=== PATIENT | female | born 1945 | race Caucasian/White ===

== ENCOUNTER 2016-09-24 10:53 | Day surgery (SDC) | payer MEDICARE, MEDICAID ==
--- NOTE | 2016-09-24 08:17 | History and Physical Report ---
DATE OF EVALUATION: 09/24/2016. CHIEF COMPLAINT AND HISTORY OF CHIEF COMPLAINT: This patient presents with a history of postlaminectomy radiculitis. Due to the failure of all therapies, a spinal cord stimulator trial was conducted on 08/21/2016 with 75 to 90% pain control. Due to the failure of all therapies and the success of the stimulator trial she presents today for implantation of a permanent system. PAST MEDICAL HISTORY: Bladder dysfunction, degenerative arthritis, radiculitis. REVIEW OF SYSTEMS: The patient seems appropriate and in no acute distress. The remainder of the systems review shows [] SOCIAL HISTORY: Caffeine. FAMILY HISTORY: Noncontributory. PAST SURGICAL HISTORY: Spinal surgery. ALLERGIES: Aspirin. MEDICATIONS ON ADMISSION: To be provided. PHYSICAL EXAMINATION: General: Height is 5 feet, 7 inches. Weight is 130 pounds. Vital Signs: Unavailable. HEENT: Within normal limits. Lungs: Clear. Heart: Regular rate and rhythm. Abdomen: Nontender. Musculoskeletal: Examination of the musculoskeletal system shows diffuse tenderness throughout the lumbar spine. Range of motion produces pain into both legs. Ambulation: No assistive device utilized. Neurologic: Cranial nerves are intact. IMPRESSIONS: 1. POSTLUMBAR LAMINECTOMY SYNDROME, ICD10 CODE M96.1. 2. LUMBAR RADICULITIS, ICD10 CODE M54.16 AND M54.17. PLANS: The patient is here for implantation of a permanent spinal cord stimulator based upon a successful trial. All of the potential risks, side effects, and complications have been carefully reviewed and discussed including dural puncture, spinal headache, nerve root injury, and spinal cord trauma. The patient understands the potential risks, side effects, and complications and has consented. The appropriate information from the commercial assistant explaining complications and risks was also provided and reviewed. We will consider this an outpatient procedure, although an overnight stay will be evaluated. Christian Corrales D.O. Date Time JOB NUMBER: [id number] cc: Raymon Hoffman
[~2016-09-24 10:53] MED LIST: ACETAMINOPHEN 1000MG/100 ML PREMIX IV ONE; CEFAZOLIN 2 Gram 50 ML IVPB ONE; FAMOTIDINE 20MG TABLET PO ONE; MECLIZINE 25 MG TABLET PO ONE; METOCLOPRAMIDE 10 MG TABLET PO ONE
[2016-09-24] MEDS ORDERED: CEFAZOLIN 1G VIAL IM ONE ×2 (14:00)
[2016-09-24] MEDS ORDERED: BUPIVACAINE 0.5% W/EPI MPF 30 ML VIAL IVP ONE (14:00)
[2016-09-24] MEDS ORDERED: LIDOCAINE 1% W/EPI 1:200,000 MPF 30ML SQ ONE (14:00)
[2016-09-24] MEDS ORDERED: PROPOFOL 10 MG/ML VIAL IV ONE (15:51)
[2016-09-24] MEDS ORDERED: FENTANYL PF 100MCG/2ML VIAL IV ONE (15:51)
[2016-09-24] MEDS ORDERED: FLUMAZENIL 1MG/10ML VIAL IV ONE (15:51)
[2016-09-24] MEDS ORDERED: MIDAZOLAM HCL 2MG/2ML VIAL IV ONE (15:51)
[2016-09-24] MEDS ORDERED: LIDOCAINE 2% MDV (20MG/ML) 20ML VIAL IV ONE (15:51)
[2016-09-24] MEDS ORDERED: METOCLOPRAMIDE 10 MG TABLET PO PRN (15:52)
[2016-09-24] MEDS ORDERED: HYDROMORPHONE HCL 1 MG/ML CPJ IM PRN (15:52)
[2016-09-24] MEDS ORDERED: HYDROCODONE/APAP 7.5/325MG TABLET PO PRN ×2 (15:52)
[2016-09-24] MEDS ORDERED: ACETAMINOPHEN 325 MG TAB PO PRN ×2 (15:52)
[2016-09-24] MEDS ORDERED: HYDROMORPHONE HCL 2 MG/ML VIAL IM PRN (15:52)
[2016-09-24] MEDS ORDERED: METOCLOPRAMIDE HCL 10 MG/2 ML VIAL IVP PRN (15:52)
[2016-09-24] MEDS ORDERED: DIPHENHYDRAMINE HCL IV 50 MG/ML VIAL IVP PRN ×2 (15:52)
[2016-09-24] MEDS ORDERED: SENNOSIDES/DOCUSATE SODIUM UD CAPSULE PO PRN ×2 (15:52)
[2016-09-24] MEDS ORDERED: OXYCODONE/APAP 10MG-325MG TABLET PO PRN (15:52)
[2016-09-24] MEDS ORDERED: TEMAZEPAM 15 MG CAPSULE PO PRN ×2 (15:52)
[2016-09-24] MEDS ORDERED: DIPHENHYDRAMINE HCL 25 MG CAPSULE PO PRN ×2 (15:52)
[2016-09-24] MEDS ORDERED: AL HYDROX/MAG HYDROX 30ML UD PO PRN (15:52)
[2016-09-24] MEDS: OXYCODONE/APAP 10MG-325MG TABLET PO PRN ×2 (18:10→23:28)
[2016-09-24] MEDS: CEFAZOLIN 2 Gram 50 ML IVPB SCH (21:07)
[2016-09-24] MEDS ORDERED: 0.9 % SODIUM CHLORIDE 10ML SYR IVP SCH (22:00)
[2016-09-25] MEDS: CEFAZOLIN 2 Gram 50 ML IVPB SCH (05:34)
--- NOTE | 2016-09-25 16:42 | Operative Note - [place] ---
DATE OF SURGERY: 09/24/16 PREOPERATIVE DIAGNOSES: 1. POST LUMBAR LAMINECTOMY SYNDROME, ICD-10 CODE = M96.1. 2. LUMBAR RADICULITIS, ICD-10 CODE = M54.16 AND M54.17. OPERATION: 1. FLUOROSCOPICALLY-GUIDED EPIDURAL ACCESS AT T12/L1. PLACEMENT OF SPINAL CORD STIMULATOR LEAD 1, A [employer] INFINION 16 WITH 16 ELECTRODES POSITIONED LEFT, T7. 2. COMPLEX PROGRAMMING LEAD 1, 20 MINUTES. 3. FLUOROSCOPICALLY-GUIDED EPIDURAL ACCESS T11/12, PLACEMENT OF SPINAL CORD STIMULATOR LEAD 2, A [employer] INFINION 16 WITH 16 ELECTRODES POSITIONED RIGHT, T7. 4. COMPLEX PROGRAMMING LEAD 2, 20 MINUTES. 5. INCISION, SUBCUTANEOUS DISSECTION, AND ANCHORING OF LEAD 1 AND LEAD 2 TO SUPRASPINOUS FASCIA USING A [employer] LOCKING ANCHOR. 6. INCISION, SUBCUTANEOUS DISSECTION, AND CREATION OF SUBCUTANEOUS POUCH, RIGHT POSTERIOR GLUTEAL MARGIN FOR PLACEMENT OF GENERATOR IDENTIFIED [employer] PROGRAMMABLE RECHARGEABLE. 7. TUNNELING BETWEEN POUCHES. PLACEMENT OF EXTERNAL PORTION OF LEAD 1 AND LEAD 2 INTO GENERATOR POUCH, EACH LEAD INTERFACED WITH THE BIFURCATED EXTENSION, EACH BIFURCATED EXTENSION INTERFACED TO THE INTERNAL PULSE GENERATOR. 8. SECURING GENERATOR INTO POUCH USING NONABSORBABLE SUTURE, PLACEMENT OF LEADS INTO POUCH. CLOSURE OF INCISIONS, VICRYL FOR FASCIA, RUNNING SUBCUTICULAR VICRYL FOR SKIN. DERMABOND CLOSURE. 9. COMPLEX RECOVERY ROOM PROGRAMMING INTERNAL GENERATOR HOME USE, TWO STIMULATORS, RECOVERY ROOM 20 MINUTES. SURGEON: VICTORINO SEGURA D.O. ANESTHESIA: LOCAL SEDATION. ANESTHESIA PROVIDER: CONOR STEWART CRNA. INDICATION: This patient presents with a history of intractable lumbar radiculitis since post laminectomy in order. Due to the failure of therapy, a stimulator trial conducted with up to 75 to 90% pain control. Due to the failure of all therapies and the success of the trial, she is here for implantation of a permanent system. PROCEDURE: Intravenous line, vital sign monitoring, IV sedation. Prepped and draped sterile technique. Under imaging, the epidural interspace at 12/1 and 11/ 12 were both identified and marked. Skin infiltrated and two separate curved access Epimed needles with [id number] into the epidural space. At T12/1 , spinal cord stimulator lead 1, a [employer] Infinion 16 with 16 electrodes positioned left T7. With the epidural access at T11/12, spinal cord stimulator lead 2, also a [employer] Infinion 16 with 16 electrodes, positioned right of T7. Complex programming of lead 1 over 20 minutes and complex programming of lead 2 over 20 minutes ultimately resulting in patterns of stimulation across the back and into the legs; patient indicating we are in all of the appropriate areas. She was then given the option to implant, continue to program, or remove; she opted to implant. Questions were repeated with the same response. The skin below both needles was infiltrated, incision made, and subcutaneous dissection was conducted to form a pouch of suitable size and depth for the generator identified as a [employer] Programmable Rechargeable. After the leads were anchored to the fascia, they were tunneled into the pouch at the right posterior/superior gluteal margin. Each lead was then interfaced with a bifurcated extension and each bifurcated extension was interfaced to the generator. Antibiotic irrigation. Bovie for hemostasis. The generator was placed into the pouch and secured to the fascia with nonabsorbable suture. The leads were coiled and placed to their own pouch and then both incisions were closed Vicryl for fascia and running subcuticular Vicryl for skin. A Dermabond closure system to approximate the edges of the wound. She was transported to the Recovery Room stable showing no side-effects from the procedure or the sedation. Because of age and medical history, she will stay overnight for observation and be discharged in the morning. DISCHARGE INSTRUCTIONS: 1. The sites will remain clean and dry although the Dermabond will allow showering. 2. Standard medications resumed, including, Levaquin, the antibiotic, 500 mg once a day for 14 days. Should there be any problems with the antibiotic, she should contact the clinic for change. 3. She will be seen in the office in 5-7 days to evaluate the incisions. Until then, her activities should stay low limiting bend, lift, push, pull, walking, or standing for prolonged periods. Once seen in the office, she will be cleared for further activities. All other instructions provided. Numbers to contact have been given. She was then prepared for discharge in the morning. VICTORINO SEGURA D.O. Date & Time cc: Dr. Schwarz JOB NUMBER: [id number] [facility]
--- NOTE | 2016-09-29 08:02 | RADIOLOGY REPORT ---
DATE: 09/24/2016 at 3:13 p.m. EXAM: AP THORACOLUMBAR SPINE. HISTORY: Post spinal cord stimulator implant. TECHNIQUE: Single AP view of the thoracolumbar spine was obtained. COMPARISON: None. FINDINGS: There is a battery pack in the right lower quadrant with two wires extending from this to overlying the lumbar spine and then ascend up to the level of the superior aspect of T6 vertebra. There is also a battery pack overlying the left lower quadrant partially seen with a wire probably extending to overly the sacrum. Spurring in the spine with a mild thoracolumbar curve to the right. IMPRESSION: BATTERY PACK RIGHT LOWER QUADRANT WITH THE TWO WIRES EXTENDING UP TO THE LEVEL OF THE SUPERIOR ASPECT OF THE BODY OF T6. JOB NUMBER: [id number] MTDD
== END 2016-09-25 12:44 | disposition home health service (06) ==
LOC: SUR 10:53 → MEDSURG 15:46 → SUR 09-25 12:44
PROVIDERS: ATTEND Pain Medicine Interventional Pain Medicine
DX: M96.1 Postlaminectomy syndrome, not elsewhere classified (principal); M54.16 Radiculopathy, lumbar region; M54.17 Radiculopathy, lumbosacral region
CPT/HCPCS: 63685; 63650 ×2; 95972; 72020; 00300; J3010; J0690 ×2

== ENCOUNTER 2016-11-12 11:21 | Day surgery (SDC) | payer MEDICARE, MEDICAID ==
--- NOTE | 2016-11-12 08:03 | History and Physical Report ---
DATE OF EVALUATION: 11/12/2016. CHIEF COMPLAINT AND HISTORY OF CHIEF COMPLAINT: This patient presents with a history of intractable cervical radiculitis. She had a spinal cord stimulator trial on 10/21/2016 with up to 75 to 90% pain control. Due to the failure of all therapies and the success of the trial she presents today for implantation of a permanent system. PAST MEDICAL HISTORY: Bladder dysfunction, degenerative arthritis. REVIEW OF SYSTEMS: The patient seems appropriate and in no acute distress. The remainder of the systems review shows chronic pain syndrome. SOCIAL HISTORY: Caffeine. FAMILY HISTORY: Noncontributory. PAST SURGICAL HISTORY: Lumbar spinal surgery, lumbar spinal stimulator placement. ALLERGIES: Aspirin. MEDICATIONS ON ADMISSION: To be provided. PHYSICAL EXAMINATION: General: Height is 5 feet, 7 inches. Weight is 130 pounds. Vital Signs: Unavailable. HEENT: Within normal limits. Lungs: Clear. Heart: Regular rate and rhythm. Abdomen: Nontender. Musculoskeletal: Examination of the musculoskeletal system shows the underlying pain pattern to be neck, shoulder, and arms bilaterally. Sensory price are intact. Neurologic: Cranial nerves are intact. IMPRESSION: CERVICAL RADICULITIS, ICD10 CODE M54.13. PLANS: The patient is here for implantation of a permanent spinal cord stimulator for management of the neck, shoulder, and arms. The procedure has been explained in detail. The potential risks, side effects, and complications were reviewed including dural puncture, nerve root injury, and spinal cord injury. The patient understands and has agreed. The procedure will be considered outpatient, although an overnight stay will be evaluated. Mery Corrales D.O. Date Time JOB NUMBER: [id number] cc: Raymon Hoffman
[2016-11-12] MEDS ORDERED: SENNOSIDES/DOCUSATE SODIUM UD CAPSULE PO PRN ×2 (14:48)
[2016-11-12] MEDS ORDERED: HYDROMORPHONE HCL 1 MG/ML CPJ IM PRN (14:48)
[2016-11-12] MEDS ORDERED: DIPHENHYDRAMINE HCL 25 MG CAPSULE PO PRN ×2 (14:48)
[2016-11-12] MEDS ORDERED: HYDROMORPHONE HCL 2 MG/ML VIAL IM PRN (14:48)
[2016-11-12] MEDS ORDERED: ACETAMINOPHEN 325 MG TAB PO PRN ×2 (14:48)
[2016-11-12] MEDS ORDERED: METOCLOPRAMIDE HCL 10 MG/2 ML VIAL IVP PRN (14:48)
[2016-11-12] MEDS ORDERED: HYDROCODONE/APAP 7.5/325MG TABLET PO PRN ×2 (14:48)
[2016-11-12] MEDS ORDERED: METOCLOPRAMIDE 10 MG TABLET PO PRN (14:48)
[2016-11-12] MEDS ORDERED: AL HYDROX/MAG HYDROX 30ML UD PO PRN (14:48)
[2016-11-12] MEDS ORDERED: DIPHENHYDRAMINE HCL IV 50 MG/ML VIAL IVP PRN ×2 (14:48)
[2016-11-12] MEDS ORDERED: TEMAZEPAM 15 MG CAPSULE PO PRN ×2 (14:48)
[2016-11-12] MEDS ORDERED: LIDOCAINE 2% MDV (20MG/ML) 20ML VIAL IV ONE (15:15)
[2016-11-12] MEDS ORDERED: FENTANYL PF 100MCG/2ML VIAL IV ONE (15:15)
[2016-11-12] MEDS ORDERED: MIDAZOLAM HCL 2MG/2ML VIAL IV ONE (15:15)
[2016-11-12] MEDS ORDERED: PROPOFOL 10 MG/ML VIAL IV ONE (15:15)
[2016-11-12] MEDS ORDERED: BUPIVACAINE 0.5% W/EPI MPF 30 ML VIAL IVP ONE (15:29)
[2016-11-12] MEDS ORDERED: LIDOCAINE 1% W/EPI 1:200,000 MPF 30ML SQ ONE (15:29)
[2016-11-12] MEDS ORDERED: CEFAZOLIN 1G VIAL IM ONE (15:29)
[2016-11-12] MEDS: OXYCODONE/APAP 10MG-325MG TABLET PO PRN (18:07)
[2016-11-12] MEDS: CEFAZOLIN 2 Gram 50 ML IVPB SCH (21:21)
[2016-11-12] MEDS ORDERED: TRIMETHOPRIM 100 MG PO SCH (22:00)
[2016-11-12] MEDS ORDERED: 0.9 % SODIUM CHLORIDE 10ML SYR IVP SCH (22:00)
[2016-11-13] MEDS: OXYCODONE/APAP 10MG-325MG TABLET PO PRN ×3 (00:27→11:00)
[2016-11-13] MEDS: CEFAZOLIN 2 Gram 50 ML IVPB SCH ×2 (04:12→10:47)
--- NOTE | 2016-11-14 08:57 | Operative Note ---
PAIN SERVICE OPERATIVE REPORT DATE OF PROCEDURE: 11/12/2016. PREOPERATIVE DIAGNOSIS: INTRACTABLE CERVICAL RADICULITIS, ICD10 CODE M54.13. PROCEDURES: 1. Fluoroscopically guided left epidural access at T1-2. Placement of spinal cord stimulator Lead 1, a [employer] Infinion 16 with 16 electrodes, positioned left C2. 2. Fluoroscopically guided epidural access, left T2-3 with placement of spinal cord stimulator Lead 2, a [employer] Infinion 16 with 16 electrodes positioned right C2. 3. Complex programming of Lead 1 over 20 minutes followed by complex programming of Lead 2 over 20 minutes. 4. Incision, subcutaneous dissection, and anchoring of Lead 1 and Lead 2 to deep fascia using a [employer] locking anchors and nonabsorbable suture. 5. Incision, subcutaneous dissection, and creation of subcutaneous pouch at the left flank for placement of generator identified as a [employer] Programmable Rechargeable. 6. Tunneling between pouches and placement of external ports for Lead 1 and Lead 2 into generator pouch, each lead inserted into bifurcate extension. Each bifurcate extension inserted into the generator. 7. Placement of generator pouch, securing to the posterior fascia using nonabsorbable suture. Placement of leads into pouch. 8. Closure of incisions with Vicryl to the fascia running subcuticular Vicryl for the skin. Dermabond Closure System. 9. Complex recovery room programming of the internal generator, home use, two stimulators, 20 minutes. SURGEON: Christian Corrales D.O. ANESTHESIA: Local sedation. ANESTHESIA PROVIDER: Jaswinder Jerome CRNA. INDICATIONS: This patient presents with a history of intractable cervical radiculitis. Due to the failure of therapy a stimulator trial was conducted with 75 to 90% pain control. Due to the failure of other therapies and the success of the trial, she presents today for implantation of a permanent system. DESCRIPTION OF PROCEDURE: Intravenous line, vital sign monitoring, intravenous sedation. Prepped and draped with sterile technique with the patient positioned on the operating room table prone. Under imaging, the epidural interspace on the left at T1-2 and 2-3 were marked and infiltrated. Two separate epidural access needles with loss of resistance into the space. At 1- 2 spinal cord stimulator Lead 1, a [employer] Infinion 16 with 16 electrodes, was positioned left C2. The epidural access at 2-3, spinal cord stimulator Lead 2, also a [employer] Infinion 16 with 16 electrodes, was positioned right C2. Complex programming of Lead 1 over 20 minutes and then complex programming of Lead 2 over 20 minutes. This resulted in patterns of stimulation across the neck and into the shoulders bilaterally. The patient indicated that we were in all of the areas of the pain. The patient was then given the options to implant or continue to program or remove. She opted to implant. Questions were repeated with the same response. The skin below both needles was infiltrated. An incision was made with subcutaneous dissection was conducted to the supraspinous fascia. Each lead was then anchored to the fascia using a [employer] locking anchor and nonabsorbable suture. At the left flank, our site picked by the patient for the generator, the skin was infiltrated. An incision was made and subcutaneous dissection was conducted to form a pouch of suitable size and depth for the generator identified as a [employer] Programmable Rechargeable. A tunneling tool was then used to carry the leads into the generator pouch, and each lead interfaced to bifurcate extension. Each bifurcate extension was interfaced to the generator. Antibiotic irrigation. Bovie for hemostasis. The generator was placed into the pouch and secured to the fascia with nonabsorbable suture. The leads were placed into their own pouch, and then both incisions were closed with Vicryl to the fascia and running subcuticular and Vicryl for skin. Dermabond Closure System approximated the wounds. She was transported to the recovery stable, showing no side effects from the procedure or the sedation. In the recovery room when fully awake and alert, complex programming of the generator was performed over 20 minutes. Because of the time of day and the amount of surgery, she will be kept overnight for observation and will be discharged in the morning. DISCHARGE INSTRUCTIONS: 1. The sites will remain clean and dry. No showering or bathing in any way that would result in loss of integrity of the wound. If it happens, contact the clinic. 2. Standard medications may be resumed including an antibiotic with Levaquin 500 mg once a day for 14 days. If she does not tolerate the antibiotic, she should contact the clinic for a substitution. 3. All other instructions were provided, numbers to contact, and problems given. At that point she will then be discharged. Christian Corrales D.O. Date Time JOB NUMBER: cc: Raymon Hoffman
--- NOTE | 2016-11-14 12:29 | RADIOLOGY REPORT ---
EXAM: AP VIEWS OF THE THORACIC AND LUMBAR SPINE HISTORY: STIMULATOR REPLACEMENT. TECHNIQUE: AP views of the thoracic and lumbar spine were obtained. Comparison: Spine radiograph 09/24/16. FINDINGS: Two stimulator leads extend to the upper cervical region terminating at the C2 level. Additional stimulator leads are noted in the mid thoracic area extending to the upper T6 level. Mild dextroconvex scoliosis of the lumbar spine. Power packs overlie the pelvis and left mid abdomen. IMPRESSION: STIMULATOR LEADS IN THE UPPER CERVICAL SPINE AND MID THORACIC SPINE ABOVE. JOB NUMBER: [id number] MTDD
== END 2016-11-13 11:55 | disposition home or self-care (01) ==
LOC: SUR 11:21 → MEDSURG 14:59 → SUR 11-13 11:55
PROVIDERS: ATTEND Pain Medicine Interventional Pain Medicine
DX: M54.13 Radiculopathy, cervicothoracic region (principal)
CPT/HCPCS: 95972; 72020; 63685; 63650 ×2; 00300; J3010; J0690 ×2

== ENCOUNTER 2017-09-30 12:09 | Day surgery (SDC) | payer MEDICARE, MEDICAID ==
--- NOTE | 2017-09-29 18:07 | History and Physical Report ---
DATE: 09/29/2017. CHIEF COMPLAINT AND HISTORY OF CHIEF COMPLAINT: This is a patient with a history of multiple regions of pain including thoracic and a lumbar radiculitis. She currently has a spinal cord stimulator in place which is not adequately controlling her pain. Due to the failure of all other therapies, she is here for an implanted spinal catheter infusion trial with hydromorphone to determine if the implantation of a permanent system can be of any value in pain control. PAST MEDICAL HISTORY: Bladder dysfunction, degenerative arthritis, and a postlumbar laminectomy radiculitis. PAST SURGICAL HISTORY: Lumbar spinal surgery, spinal cord stimulator implant. MEDICATIONS ON ADMISSION: To be provided. ALLERGIES: Aspirin. SOCIAL HISTORY: Caffeine. FAMILY HISTORY: Noncontributory. PHYSICAL EXAMINATION: General: Height and weight are not known. Vital Signs: Unavailable. HEENT: Within normal limits. Lungs: Clear. Heart: Regular rate and rhythm. Abdomen: Nontender. Musculoskeletal: Examination of the musculoskeletal system shows diffuse tenderness throughout the thoracic and lumbar spine. Range of motion does produce pain throughout both areas. She currently has a stimulator generator for her spinal cord stimulator in her left posterior margin and a bladder stimulator on the opposite side. Her lower extremity functionality shows pain across both legs. There is a laminectomy scar in the mid to low lumbar spine identified. Motor and sensory field function in the lower extremities is somewhat difficult to fully determine. There appears to be a generalized weakness in both lower extremities. Sensory price are essentially intact. Ambulation: Assistive device utilized. Neurologic: Cranial nerves are intact. IMPRESSION: 1. POSTLUMBAR LAMINECTOMY SYNDROME, ICD-10 CODE M96.1. 2. LUMBAR RADICULITIS, ICD-10 CODE M54.16 AND M54.17. PLAN: The patient is here for an implanted spinal catheter infusion trial with hydromorphone to determine if the implantation of a permanent system can be of any value in pain control. Based on her stance, an incision will be made and a spinal catheter will be surgically implanted in the deep fascia. This will help minimize the side effects of a spinal headache; although a dural puncture with epidural blood patch will still be performed. This will require that the patient lie flat for four hours and then be slowly elevated for one. Keeping her overnight makes good sense as she has no solid support system at home. The implanted catheter also means that we will only have to instrument the spine once. If the procedure works, then she will present for permanent implant of the device, and not replacing the catheter. With respect to the pump itself, as she has both posterior butt cheeks occupied by generators this may need to be an abdominal pump, but we will evaluate that at another time. The potential risks, side effects, and complications have all been carefully reviewed and discussed. These include spinal cord injury, nerve root injury, spinal headache , and failure of the therapy. The patient has been provided with all of the information including written material with a CD Rom which carefully reviews the procedure, side effects, and complications. She has spoken with a [email or web address] community relations representative, all of her questions have been answered, and the information has been covered. The patient has been educated with respect to all of the issues and has no questions. JOB NUMBER: [id number] cc: Raymon Hoffman
[~2017-09-30 12:09] MED LIST changes: +ACETAMINOPHEN 1,000 MG/100 ML BTL IV ONE; -ACETAMINOPHEN 1000MG/100 ML PREMIX IV ONE; +CEFAZOLIN 2 Gram 2 GM/50 ML BAG IVPB ONE; -CEFAZOLIN 2 Gram 50 ML IVPB ONE; +HYDROMORPHONE PF 2MG/ML AMP 0.004 MG in 0.9 % SODIUM CHLORIDE 10ML VIA 0.998 ML IV ONE; +HYDROMORPHONE PF 2MG/ML AMP 2 MG in 0.9 % SODIUM CHLORIDE 500ML 499 ML IV ONE
[2017-09-30] MEDS ORDERED: LIDOCAINE 1% W/EPI 1:200,000 MPF 30ML SQ ONE (12:10)
[2017-09-30] MEDS ORDERED: BUPIVACAINE 0.5% W/EPI MPF 30 ML VIAL IVP ONE (12:10)
[2017-09-30] MEDS ORDERED: MIDAZOLAM HCL 2MG/2ML VIAL IV ONE (12:10)
[2017-09-30] MEDS ORDERED: PROPOFOL 10 MG/ML VIAL IV ONE (12:10)
[2017-09-30] MEDS ORDERED: LIDOCAINE 2% MDV (20MG/ML) 20ML VIAL IV ONE (12:10)
[2017-09-30] MEDS ORDERED: HYDROMORPHONE HCL 2 MG/ML VIAL IV ONE (12:10)
[2017-09-30] MEDS ORDERED: OXYCODONE/APAP 10MG-325MG TABLET PO PRN ×2 (16:18)
[2017-09-30] MEDS ORDERED: AL HYDROX/MAG HYDROX 30ML UD PO PRN (16:18)
[2017-09-30] MEDS ORDERED: NALOXONE 0.4 MG/1 ML VIAL IVP PRN (16:18)
[2017-09-30] MEDS ORDERED: HYDROMORPHONE HCL 2 MG/ML VIAL IM PRN (16:18)
[2017-09-30] MEDS ORDERED: HYDROMORPHONE HCL 1 MG/ML SYRINGE IM PRN (16:18)
[2017-09-30] MEDS ORDERED: HYDROCODONE/APAP 7.5/325MG TABLET PO PRN ×2 (16:18)
[2017-09-30] MEDS ORDERED: TEMAZEPAM 15 MG CAPSULE PO PRN ×2 (16:18)
[2017-09-30] MEDS ORDERED: METOCLOPRAMIDE HCL 10 MG/2 ML VIAL IVP PRN (16:18)
[2017-09-30] MEDS ORDERED: METOCLOPRAMIDE 10 MG TABLET PO PRN (16:18)
[2017-09-30] MEDS ORDERED: SENNOSIDES/DOCUSATE SODIUM UD CAPSULE PO PRN ×2 (16:18)
[2017-09-30] MEDS ORDERED: DIPHENHYDRAMINE HCL 25 MG CAPSULE PO PRN ×2 (16:18)
[2017-09-30] MEDS ORDERED: ACETAMINOPHEN 325 MG TAB PO PRN ×2 (16:18)
[2017-09-30] MEDS ORDERED: DIPHENHYDRAMINE HCL IV 50 MG/ML VIAL IVP PRN ×2 (16:18)
[2017-09-30] MEDS: RINGERS SOLUTION,LACTATED 1,000 ML IV SCH (20:01)
[2017-09-30] MEDS: CEFAZOLIN 2 Gram 2 GM/50 ML BAG IVPB SCH (20:23)
[2017-09-30] MEDS ORDERED: PREGABALIN (LYRICA) 100MG CAPSULE PO SCH (22:00)
[2017-10-01] MEDS: RINGERS SOLUTION,LACTATED 1,000 ML IV SCH ×2 (00:27→08:52)
[2017-10-01] MEDS: CEFAZOLIN 2 Gram 2 GM/50 ML BAG IVPB SCH ×2 (04:24→12:15)
--- NOTE | 2017-10-01 09:59 | RADIOLOGY REPORT ---
EXAM: THORACOLUMBAR SPINE, SINGLE VIEW HISTORY: POST PAIN PUMP TRIAL. TECHNIQUE: A single AP view of the thoracic and lumbar spine was obtained beginning at about the level of the T7-T8 interspace and extending down into the lower sacrum. Comparison: Prior AP spine study 10/23/16. FINDINGS: There is a battery pack in the left lower quadrant with a single wire extending from this to overlie the sacrum and then extend inferiorly towards the lateral border of the mid to lower sacrum. This was partially included on the prior study. There is also a battery pack in the right lower quadrant also present previously , with two catheters appearing to extend from this to the level of the mid lumbar spine and then ascends up probably above the superior aspect of the film with the segmented metal distal ends probably not entirely included on this film , however, as visualized, the segmental terminus of these catheters begins at the level of the T8-T9 interspace and extends up to the upper edge of the films which is at the level of the inferior aspect of the body of T7. These were present previously as well. There is also a battery pack overlying the left mid abdomen which was also present previously. Catheters extend from this along the left side of the abdomen and left side of the lower chest and have not reached the level of the spine along the superior edge of the film. Clinical correlation as to whether a film including more of the thoracic spine is desired to demonstrate the full extent of either of the apparent pair of catheters associated with the battery pack in the right lower quadrant and left mid abdomen. There is probably a small amount of contrast media overlying the lower spinal canal at the lumbosacral junction. Thoracolumbar curve to the right with hypertrophic spurring in the spine. Prominent stool throughout much of the colon which may be associated with constipation. In addition, there is an apparent new small caliber catheter extending from the right mid abdomen to overlie the spine at the L3-L4 level and then appears to ascend up to a tiny metallic dot at the T11 level presumably representing the terminus of this fine caliber catheter. This was not present previously. A similar fine caliber catheter also at the right mid abdomen extending to the spine at the level of the L1-L2 interspace and is difficult to follow beyond this due to considerable overlying catheter. IMPRESSION: 1. BATTERY PACK LEFT LOWER QUADRANT WITH A SINGLE WIRE EXTENDING TO OVERLIE THE LEFT SIDE OF THE SACRUM. 2. THERE ARE TWO OTHER BATTERY PACKS PRESENT, BOTH OF WHICH HAVE A PAIR OF CATHETERS EXTENDING FROM THEM DIRECTED SUPERIORLY AND MEDIALLY. FULL EXTENT OF NEITHER PAIR OF CATHETERS IS INCLUDED ON THIS FILM DESCRIBED ABOVE. 3. THERE IS ALSO SOME ADDITIONAL VERY FINE CALIBER CATHETER PROJECTED OVER THE RIGHT SIDE OF THE MID LUMBAR SPINE AND THERE IS NOW A NEW TINY METALLIC DOT OVERLYING THE BODY OF T11 WHICH WAS NOT SEEN PREVIOUSLY, IT MAY REPRESENT THE SUPERIOR EXTENT OF THIS FINE CALIBER CATHETER. CLINICAL CORRELATION TO THE NATURE OF THIS CATHETER IS SUGGESTED IT IS NOT CLEARLY SEEN TO BE CONNECTED TO ANY OF THE BATTERY PACKS. JOB NUMBER: [id number] MTDD
--- NOTE | 2017-10-01 17:08 | Operative Note - Ferro ---
DATE OF SURGERY: 09/30/17 PREOPERATIVE DIAGNOSES: 1. POST LUMBAR LAMINECTOMY SYNDROME, ICD-10 CODE = M96.1. 2. LUMBAR RADICULITIS, ICD-10 CODE = M54.16 AND M54.17. OPERATION: 1. FLUOROSCOPICALLY-GUIDED SPINAL ACCESS AT L2-3, PLACEMENT OF THIN-WALLED SPINAL CATHETER TIP POSITION T11. 2. DIAGNOSTIC MYELOGRAPHY WITH RADIOLOGIC SUPERVISION AND INTERPRETATION. 3. INCISION, SUBCUTANEOUS DISSECTION, AND ANCHORING OF SPINAL CATHETER TO SUPRASPINOUS FASCIA USING AN ANCHOR AND NONABSORBABLE SUTURE. 4. INCISION, SUBCUTANEOUS DISSECTION, AND CREATION OF SMALL SUBCUTANEOUS POUCH, RIGHT FLANK. 5. TUNNELING BETWEEN CATHETER POUCH TO FLANK POUCH. PLACEMENT OF EXTERNAL PORTION OF SPINAL CATHETER TO FLANK POUCH. CATHETER RESECTED AND INTERFACED WITH SECOND CATHETER COMPONENT BY WAY OF A CONNECTOR. 6. TUNNELING SECONDARY CATHETER COMPONENT 6 CM SUPERIOR INTERFACED WITH EXTERNAL INFUSION DEVICE SET TO DELIVER BY CONTINUOUS INFUSION HYDROMORPHONE AT 0.03 MG A DAY. 7. CLOSURE OF MIDLINE INCISION VICRYL FOR FASCIA, RUNNING SUBCUTICULAR VICRYL FOR SKIN. DERMABOND CLOSURE. CLOSURE OF FLANK INCISION RUNNING NYLON SUTURE. 8. EPIDURAL BLOOD PATCH AT L3-4, 15 ML AUTOLOGOUS BLOOD DRAWN STERILE TECHNIQUE LEFT ANTECUBITAL. SURGEON: VICTORINO SEGURA D.O. ANESTHESIA: LOCAL SEDATION. ANESTHESIA PROVIDER: DIEGO ABBOTT CRNA. INDICATION: This patient presents with post laminectomy radiculitis. Due to the failure of a spinal cord stimulator, she is here for an implanted spinal catheter infusion trial Hydromorphone to determine if the implantation of a permanent system can be of any value in pain control. PROCEDURE: Intravenous line, vital sign monitoring, IV sedation, prepped and draped in sterile technique. Patient position prone. Sterile prep. Sterile technique. The spinal interspace at L2-3 was identified, marked, and infiltrated then a 20-gauge spinal needle paramedian approach beveled with a long axis was inserted using AP and lateral imaging. The needle was advanced slowly and meticulously on the lateral image. With CSF flow through the needle, a thin-walled spinal catheter was advanced and positioned T11. During the needle placement, no fasciculations, no abnormal findings, no pain expressed by the patient. With the catheter tip at T11, the needle slightly retracted to stop CSF leak. The skin above and below the needle infiltrated, incision made, and subcutaneous dissection was conducted to the supraspinous fascia. A pursestring suture was placed and then the needle was removed. The pursestring suture tightened around the catheter to stop CSF leak. With the needle removed, the stylette was then removed from the catheter and CSF was noted coming through the catheter. An anchoring device was placed over the catheter and advanced to the position at the insertion. With the anchor around the catheter, the anchor was then sutured to the supraspinous fascia with nonabsorbable suture. A continuation of CSF flow through the catheter noted. The catheter was clamped to stop CSF leak. At that point, diagnostic myelography was performed approximately 1 mL of contrast was injected; the resulting smooth linear flow of contrast showed appropriate myelogram characteristics. No abnormal findings. No pain expressed on the part of the patient. Appropriate flow. With the positive and appropriate characteristics, a bolus of Hydromorphone at 0.002 mg given into the spinal space. Catheter was then clamped to stop CSF leak. At the right flank, skin infiltrated, incision made, and subcutaneous dissection was conducted to form a small pouch. The spinal catheter was tunneled into the flank pouch and then the spinal catheter was interfaced and resected with a new catheter component by way of connector. The second catheter component was then tunneled 6 cm superior above the flank pouch exiting the skin. The external catheter was then interfaced with an external pump, which was set to deliver Hydromorphone at 0.03 mg per day. The midline incision was closed Vicryl for fascia and running subcuticular Vicryl for skin. Dermabond closure. The right flank pouch was closed with a running nylon suture. At L3-4, which is one level below the dural puncture, skin infiltrated and an 18-gauge Tuohy needle with [id number] into the space. Simultaneously, 15 mL of autologous blood drawn sterile technique to the left antecubital maintaining sterility of the blood placed onto the field and then an epidural blood patch was performed at this level with this blood. The dressings were reinforced and placed so that all catheter components and connections were under sterile dressing. She was transported to the Recovery Room. The external infusion pump running at 0.03 mg a day. She was monitored until stable. She will be kept flat for four hours, slowly elevated for one and be kept overnight for observation. DISCHARGE INSTRUCTIONS IN THE MORNIN. Sites remain clean and dry. No showering or bathing in any way that disrupts dressing. If it happens, contact the clinic. 2. Standard medications resumed including Levaquin, the antibiotic, 500 mg once a day for 14 days. 3. The trial will run 12-14 days. We will set three increases during this period of time depending upon her pain level. The first increase will be scheduled within 2-3 days, the other increases as necessary. Spinal opioid side- effects including respiratory depression, nausea, vomiting, constipation, urinary retention, lightheadedness, or rash have all been discussed and reviewed. All other instructions provided, numbers to contact, problems given. She will then be prepared for discharge in the morning. cc: Dr. Schwarz JOB NUMBER: [id number] MTDD
== END 2017-10-01 13:50 | disposition home or self-care (01) ==
LOC: SUR 12:09 → MEDSURG 16:05 → SUR 10-01 13:50
PROVIDERS: ATTEND Pain Medicine Interventional Pain Medicine
DX: M96.1 Postlaminectomy syndrome, not elsewhere classified (principal); M54.16 Radiculopathy, lumbar region; M54.17 Radiculopathy, lumbosacral region; M81.0 Age-related osteoporosis without current pathological fracture
CPT/HCPCS: 62350; 00630; 72020; Q9967; J1170 ×2; J0690 ×2; J7040; J7120

== ENCOUNTER 2017-10-14 11:49 | Day surgery (SDC) | payer MEDICARE, MEDICAID ==
--- NOTE | 2017-10-14 07:46 | History and Physical Report ---
DATE: 10/13/2017. CHIEF COMPLAINT AND HISTORY OF CHIEF COMPLAINT: This patient presents with an ongoing implanted spinal catheter infusion trial with hydromorphone. She is here for implantation of the pump reservoir itself. She currently has an implanted catheter. The technique will involve removing the externalized component and interfacing the indwelling catheter to the pump placed in the posterior gluteal margin or flank. During the trial period, it was identified that the patient is small, and the posterior gluteal margin is probably not an optimal site for placement of the pump reservoir. The plan is to place this above the belt line in the flank. The patient understands. PAST MEDICAL HISTORY: Bladder dysfunction, degenerative arthritis, postlaminectomy syndrome. PAST SURGICAL HISTORY: Lumbar spinal surgery, spinal cord stimulator implant. SOCIAL HISTORY: Caffeine. FAMILY HISTORY: Noncontributory. MEDICATIONS ON ADMISSION: To be provided. ALLERGIES: Aspirin. PHYSICAL EXAMINATION: General: Height and weight are not available. Vital Signs: Not available. HEENT: Within normal limits. Lungs: Clear. Heart: Regular rate and rhythm. Abdomen: Nontender. Musculoskeletal: Examination of the musculoskeletal system shows the dressings enclosing the implanted catheter. They are intact. Sensory field evaluation shows a bilateral lower extremity radicular pain focusing below the knees into the calf muscles and feet. Motor and sensory field functionality shows the pain pattern and confirms mild deficits in motor strength across the front and back of the bilateral lower extremities. Ambulation: Somewhat antalgic, although no assistive device is utilized. She does utilize an assistive device on a regular basis. Neurologic: Cranial nerves are intact. IMPRESSION: 1. POSTLUMBAR LAMINECTOMY SYNDROME, ICD-10 CODE M96.1. 2. LUMBAR RADICULITIS, ICD-10 CODE M54.16 AND M54.17. 3. IMPLANTED SPINAL CATHETER INFUSION TRIAL WITH HYDROMORPHONE. PLAN: The patient had 75 to 85 percent pain control and is here for completion of the implant. The external components will be removed and the pump will be placed into the flank with interface to the existing catheter. All of the potential risks, side effects, and complications have been carefully reviewed and discussed. The patient understands and has consented. We will consider this outpatient, although an overnight stay will be evaluated. JOB NUMBER: [id number] cc: Raymon Hoffman
[~2017-10-14 11:49] MED LIST changes: +HYDROMORPHONE HCL 0.016 GM in 0.9 % SODIUM CHLORIDE 10ML VIA 20 ML IV ONE; -HYDROMORPHONE PF 2MG/ML AMP 2 MG in 0.9 % SODIUM CHLORIDE 500ML 499 ML IV ONE
[2017-10-14] MEDS ORDERED: FENTANYL PF 100MCG/2ML VIAL IV ONE (11:50)
[2017-10-14] MEDS ORDERED: CEFAZOLIN 1G VIAL IM ONE (11:50)
[2017-10-14] MEDS ORDERED: LIDOCAINE 1% W/EPI 1:200,000 MPF 30ML SQ ONE (11:50)
[2017-10-14] MEDS ORDERED: BUPIVACAINE 0.5% W/EPI MPF 30 ML VIAL IVP ONE (11:50)
[2017-10-14] MEDS ORDERED: MIDAZOLAM HCL 2MG/2ML VIAL IV ONE (11:50)
[2017-10-14] MEDS ORDERED: LIDOCAINE 2% MDV (20MG/ML) 20ML VIAL IV ONE (11:50)
[2017-10-14] MEDS ORDERED: PROPOFOL 10 MG/ML VIAL IV ONE (11:50)
[2017-10-14] MEDS ORDERED: DIPHENHYDRAMINE HCL IV 50 MG/ML VIAL IVP PRN ×2 (15:01)
[2017-10-14] MEDS ORDERED: OXYCODONE/APAP 10MG-325MG TABLET PO PRN ×2 (15:01)
[2017-10-14] MEDS ORDERED: HYDROCODONE/APAP 7.5/325MG TABLET PO PRN ×2 (15:01)
[2017-10-14] MEDS ORDERED: DIPHENHYDRAMINE HCL 25 MG CAPSULE PO PRN ×2 (15:01)
[2017-10-14] MEDS ORDERED: NALOXONE 0.4 MG/1 ML VIAL IVP PRN (15:01)
[2017-10-14] MEDS ORDERED: HYDROMORPHONE HCL 2 MG/ML VIAL IM PRN (15:01)
[2017-10-14] MEDS ORDERED: SENNOSIDES/DOCUSATE SODIUM UD CAPSULE PO PRN ×2 (15:01)
[2017-10-14] MEDS ORDERED: TEMAZEPAM 15 MG CAPSULE PO PRN ×2 (15:01)
[2017-10-14] MEDS ORDERED: AL HYDROX/MAG HYDROX 30ML UD PO PRN (15:01)
[2017-10-14] MEDS ORDERED: METOCLOPRAMIDE HCL 10 MG/2 ML VIAL IVP PRN (15:01)
[2017-10-14] MEDS ORDERED: ACETAMINOPHEN 325 MG TAB PO PRN ×2 (15:01)
[2017-10-14] MEDS ORDERED: METOCLOPRAMIDE 10 MG TABLET PO PRN (15:01)
[2017-10-14] MEDS ORDERED: HYDROMORPHONE HCL 1 MG/ML SYRINGE IM PRN (15:01)
[2017-10-14] MEDS: RINGERS SOLUTION,LACTATED 1,000 ML IV SCH ×2 (18:05→23:52)
[2017-10-14] MEDS ORDERED: CEFAZOLIN 2 Gram 2 GM/50 ML BAG IVPB SCH (18:45)
[2017-10-14] MEDS: CEFAZOLIN 2 Gram 2 GM/50 ML BAG IVPB SCH (21:39)
[2017-10-14] MEDS ORDERED: PREGABALIN (LYRICA) 100MG CAPSULE PO SCH (22:00)
[2017-10-15] MEDS: CEFAZOLIN 2 Gram 2 GM/50 ML BAG IVPB SCH (05:33)
--- NOTE | 2017-10-15 10:39 | RADIOLOGY REPORT ---
EXAM: AP THORACOLUMBAR SPINE HISTORY: POST PAIN PUMP IMPLANT. TECHNIQUE: A single AP portable view of the spine was obtained from the approximate T10 level inferiorly. Comparison: AP spine dated 09/30/17. FINDINGS: The three previously seen battery packs two on the left and one on the right, are again seen and there now appears to be a new fourth battery pack overlying the right lower quadrant. The left lower quadrant battery pack again has a single wire extending to overlie the left side of the sacrum as before. The left mid abdomen battery pack again has multiple catheters extending superiorly above the superior aspect of the image. The previously seen right lower quadrant battery pack is again seen which also has a pair of catheters extending up above the superior aspect of the image. The new right lower quadrant battery pack may be associated with a tiny catheter like density that extends over the lumbar spine at the L3-L4 level and probably ascends up to the level of the T11-T12 interspace where there is a tiny metallic dot. There was a tiny metallic dot in this approximate location previously as well and clinical correlation as to whether this is a new faint catheter from the prior study or the same catheter now attached to a new battery pack is suggested. There is a prominent amount of stool in the colon suggesting constipation. Mild thoracolumbar curve to the right. IMPRESSION: NEW BATTERY PACK RIGHT LOWER QUADRANT DESCRIBED ABOVE. JOB NUMBER: [id number] [facility]
--- NOTE | 2017-10-15 19:14 | Operative Note - Ferro ---
DATE OF SURGERY: 10/14/17 PREOPERATIVE DIAGNOSES: 1. INTRACTABLE LUMBAR RADICULITIS, ICD-10 CODE = M54.16 AND M54.17. 2. IMPLANTED SPINAL OPIOID INFUSION SYSTEM, IMPLANTED CATHETER TRIAL OF HYDROMORPHONE. SURGERY: 1. INCISION, SUBCUTANEOUS DISSECTION, AND REMOVAL OF EXTERNAL SPINAL CATHETER. 2. INCISION, SUBCUTANEOUS DISSECTION, AND REVISION OF INTERNAL CATHETER INTERFACED WITH SECOND CATHETER COMPONENT BY WAY OF CONNECTOR. 3. INCISION, SUBCUTANEOUS DISSECTION AND CREATION OF SUBCUTANEOUS POUCH AT RIGHT FLANK FOR PLACEMENT OF PUMP IDENTIFIED A MEDTRONIC 20 ML PROGRAMMABLE, PRE-FILLED WITH HYDROMORPHONE 0.5 MG PER ML. 4. INTERFACE REVISED SPINAL CATHETER TO PUMP, PLACEMENT OF PUMP INTO POUCH SECURING TO FASCIA WITH NONABSORBABLE SUTURE AND TWO POINT PUMP EYELETS. 5. PLACEMENT OF CURVED #24 GAUGE CAPUTO INTO ACCESS PORT PUMP, ASPIRATION CLEARING 1 ML OF CATHETER CONTENTS CLEARING CATHETER OF OPIOID AND CSF MIXTURE. 6. DIAGNOSTIC MYELOGRAPHY WITH RADIOLOGIC SUPERVISION AND INTERPRETATION. 7. PROGRAMMING OF PUMP TO DELIVER BY CONTINUOUS INFUSION OF HYDROMORPHONE AT 0.06 MG PER DAY. 8. CLOSURE OF INCISION WITH VICRYL FOR FASCIA AND RUNNING SUBCUTICULAR VICRYL FOR SKIN. DERMABOND CLOSURE. SURGEON: VICTORINO SEGURA D.O. ANESTHESIA: LOCAL SEDATION. ANESTHESIA PROVIDER: CONOR STEWART CRNA INDICATION: This patient presents with a history of intractable lumbar radiculitis, which is a postlaminectomy pain pattern. An implanted spinal catheter infusion trial of Hydromorphone ongoing with 75 to 85% pain control. In fact, at certain points the patient had 100% pain control. Due to the failure of all therapy, she is here for implantation of a permanent system with the implanted catheter in place. SURGERY: Intravenous line, vital sign monitoring, IV sedation, prepped, draped , sterile technique. Patient position prone. Sterile prep. Sterile technique. The externalized catheter and all the dressing was removed. At the right flank, skin infiltrated, incision made, and subcutaneous dissection was conducted to form a pouch of suitable size and depth for the pump identified as a Medtronic 20 mL programmable. The externalized catheter was clamped, the external part cut , the internal connection to the indwelling spinal catheter was cut, and the external catheter removed intact by pulling away from the incision. The indwelling catheter was revised and interfaced with a second catheter component by way of a connector. This second catheter component was interfaced to the pump , which was placed onto the field. 20 mL programmable with 0.5 mg per mL concentration of Hydromorphone. With the pump catheter and connection made, antibiotic irrigation and Bovie for hemostasis in the pouch. The pump was then placed into the pouch and secured to the facia with nonabsorbable suture at two points using the pump eyelets. With the pump in the pouch, a #24 gauge Caputo needle was inserted into the access port and 1 mL of catheter contents was aspirated clearing the catheter of opioid and CSF mixture. Diagnostic myelography was then performed. The flow characteristics were appropriate showing the tip of the catheter at T12-L1. Myelogram characteristics were identified. The incision was then closed with Vicryl for fascia, running subcuticular Vicryl for skin, and Dermabond closure. She was transported to the Recovery Room stable showing no side-effects from the procedure or the sedation. She will be monitored, kept overnight because of her history and the lack of a support system or monitoring or observation. DISCHARGE INSTRUCTIONS IN THE MORNIN. The sites will remain clean and dry. The patient may shower because the Dermabond is impermeable to water but she should not sit or soak in water. 2. Standard medications resumed. She is on Levaquin. She will continue that 500 mg once a day for another ten days. 3. The office will contact the patient at home to set up an appointment in 7 to 10 days to evaluate the sites/incision. Until then, her activity level should stay low. All other instructions provided, numbers to contact if problems given. 4. Spinal opioid side-effects including respiratory depression, nausea, vomiting, constipation, urinary retention, light headedness or rash have all been discussed and reviewed. cc: Dr. Schwarz JOB NUMBER: [id number] MTDD
== END 2017-10-15 10:10 | disposition home or self-care (01) ==
LOC: SUR 11:49 → MEDSURG 15:31 → SUR 10-15 10:10
PROVIDERS: ATTEND Pain Medicine Interventional Pain Medicine
DX: M96.1 Postlaminectomy syndrome, not elsewhere classified (principal); M54.16 Radiculopathy, lumbar region; M54.17 Radiculopathy, lumbosacral region
CPT/HCPCS: 62367; 72020; C1755; J0690; J1170; J7120

== ENCOUNTER 2018-09-22 09:12 | Day surgery (SDC) | payer MEDICARE, MEDICAID ==
--- NOTE | 2018-09-22 07:00 | History and Physical - Ferro ---
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 Conservative options had failed. There were several decompressions with aspiration of seromatous fluid at different times which seemed to reduce the size of the seroma, but over time the seroma reaccumulated. Despite all conservative options this continued to be a chronic problem. She is here for revision and relocation of the pump and catheter due to pain from the chronic seroma at the midline catheter and the posterior pump pouch. PAST MEDICAL HISTORY: Chronic bladder dysfunction, degenerative arthritis, post laminectomy syndrome and post polio syndrome. PAST SURGICAL HISTORY: Lumbar spinal surgery, spinal cord stimulator implant, and spinal infusion device implanted. MEDICATIONS ON ADMISSION: List to be provided. ALLERGIES: ASPIRIN. FAMILY/PSYCHOSOCIAL HISTORY: Social history - Caffeine. Family history - Noncontributory. PHYSICAL EXAMINATION: Height and weight are not known. Vital signs - Blood pressure 120/72, pulse 80, respirations 16,. HEENT: Within normal limits. LUNGS: Clear. HEART: Rapid and regular. ABDOMEN: Nontender. MUSCULOSKELETAL: Examination of the musculoskeletal system shows the pump pouch at the right posterior gluteal margin demonstrating a moderate seroma. Midline catheter incision which would approximate L3-L4 also shows seromatous fluid accumulation. There is a small distention of the skin forming a pouch connecting the catheter and the pump. There are no erythematous changes. No breakdown of the skin. No abnormalities of the incision. She is afebrile. Chronic pain pattern low back bilateral lower extremities. Motor and sensory field function shows weakness and sensory loss in both legs. NEUROLOGIC: Cranial nerves are intact. IMPRESSION: 1. POST LUMBAR LAMINECTOMY SYNDROME, ICD-10 CODE M96.1 WITH RADICULOPATHY, ICD- 10 CODE M54.16 AND M54.17. 2. IMPLANTED SPINAL INFUSION SYSTEM WITH CATHETER CHRONIC SEROMA FORMATION. PLAN: As stated the patient is here because of a chronic distended seroma formation since the implant almost one year previous. Despite multiple efforts we have been unsuccessful in controlling seroma. She is here for revision and relocation of the pump and catheter to stop the seroma formation. The procedure will be considered outpatient, although an overnight stay will be evaluated. JOB NUMBER: [id number] MTDD
[~2018-09-22 09:12] MED LIST changes: -HYDROMORPHONE HCL 0.016 GM in 0.9 % SODIUM CHLORIDE 10ML VIA 20 ML IV ONE; +HYDROMORPHONE HCL 0.04 GM in 0.9 % SODIUM CHLORIDE 10ML VIA 20 ML IV ONE; -HYDROMORPHONE PF 2MG/ML AMP 0.004 MG in 0.9 % SODIUM CHLORIDE 10ML VIA 0.998 ML IV ONE; +HYDROMORPHONE PF 2MG/ML AMP 0.008 MG in 0.9 % SODIUM CHLORIDE 10ML VIA 0.996 ML IV ONE
[2018-09-22] MEDS ORDERED: BUPIVACAINE 0.5% W/EPI MPF 30 ML VIAL IVP ONE (09:13)
[2018-09-22] MEDS ORDERED: LIDOCAINE 1% W/EPI 1:200,000 MPF 30ML SQ ONE (09:13)
[2018-09-22] MEDS ORDERED: Clindamycin 600mg vial 150 MG/ML VIAL IVPB ONE (09:13)
[2018-09-22] MEDS ORDERED: LIDOCAINE 2% MDV (20MG/ML) 20ML VIAL IV ONE (09:13)
[2018-09-22] MEDS ORDERED: MIDAZOLAM HCL 2MG/2ML VIAL IV ONE (09:13)
[2018-09-22] MEDS ORDERED: PROPOFOL 10 MG/ML VIAL IV ONE (09:13)
[2018-09-22] MEDS ORDERED: FENTANYL PF 100MCG/2ML VIAL IV ONE (09:13)
[2018-09-22] MEDS ORDERED: HYDROMORPHONE HCL 2 MG/ML VIAL IM PRN ×2 (13:41)
[2018-09-22] MEDS ORDERED: ACETAMINOPHEN 325 MG TAB PO PRN ×2 (13:41)
[2018-09-22] MEDS ORDERED: DIPHENHYDRAMINE HCL 50 MG/ML VIAL IVP PRN ×2 (13:41)
[2018-09-22] MEDS ORDERED: RINGERS SOLUTION,LACTATED 1,000 ML IV SCH (13:41)
[2018-09-22] MEDS ORDERED: METOCLOPRAMIDE HCL 10 MG/2 ML VIAL IVP PRN (13:41)
[2018-09-22] MEDS ORDERED: AL HYDROX/MAG HYDROX 30ML UD PO PRN (13:41)
[2018-09-22] MEDS ORDERED: NALOXONE 0.4 MG/1 ML VIAL IVP PRN (13:41)
[2018-09-22] MEDS ORDERED: OXYCODONE/APAP 10MG-325MG TABLET PO PRN ×2 (13:41)
[2018-09-22] MEDS ORDERED: METOCLOPRAMIDE 10 MG TABLET PO PRN (13:41)
[2018-09-22] MEDS ORDERED: TEMAZEPAM 15 MG CAPSULE PO PRN ×2 (13:41)
[2018-09-22] MEDS ORDERED: DIPHENHYDRAMINE HCL 25 MG CAPSULE PO PRN ×2 (13:41)
[2018-09-22] MEDS ORDERED: HYDROCODONE/APAP 7.5/325MG TABLET PO PRN ×2 (13:41)
[2018-09-22] MEDS ORDERED: SENNOSIDES/DOCUSATE SODIUM UD CAPSULE PO PRN ×2 (13:41)
[2018-09-22] MEDS: CEFAZOLIN 2 Gram 2 GM/50 ML BAG IVPB SCH (20:17)
[2018-09-22] MEDS ORDERED: PREGABALIN 25 MG CAPSULE PO SCH (22:00)
[2018-09-22] MEDS ORDERED: PREGABALIN 50 MG CAPSULE PO SCH (22:00)
[2018-09-23] MEDS: CEFAZOLIN 2 Gram 2 GM/50 ML BAG IVPB SCH (04:09)
--- NOTE | 2018-09-23 16:26 | Operative Note ---
DATE OF SURGERY: 09/22/2018 PREOPERATIVE DIAGNOSES: 1. POST LUMBAR LAMINECTOMY SYNDROME, ICD-10 CODE = M96.1 WITH RADICULOPATHY, ICD-10 CODE = M54.16 AND M54.17. 2. INTRASPINAL INFUSION SYSTEM, HYDROMORPHONE WITH PAIN AND SEROMA AT THE RIGHT POSTERIOR GLUTEAL MARGIN PUMP POUCH. SURGERY: 1. INCISION AND SUBCUTANEOUS DISSECTION AND REMOVAL OF PUMP AT THE POSTERIOR GLUTEAL MARGIN. 2. INCISION AND SUBCUTANEOUS DISSECTION WITH REVISION OF SPINAL CATHETER AT CATHETER INSERTION L3-4. 3. INCISION AND SUBCUTANEOUS DISSECTION AND FORMATION OF SUBCUTANEOUS POUCH RIGHT FLANK FOR PLACEMENT OF PUMP, 20 ML PROGRAMMABLE MEDTRONIC FILLED WITH HYDROMORPHONE 10 MG PER ML. 4. TUNNELING REVISED CATHETER INTO RIGHT FLANK POUCH, INTERFACE REVISED CATHETER TO PUMP. 5. PLACEMENT OF PUMP/CATHETER COMBINATION INTO RIGHT FLANK POUCH SECURING TO POSTERIOR FASCIA WITH NONABSORBABLE SUTURE, THREE-POINT PUMP EYELETS. 6. WITH PUMP IN POUCH, PLACEMENT OF CURVED #24 GAUGE CAPUTO NEEDLE INTO ACCESS PORT, ASPIRATION CLEARING PUMP CATHETER OF OPIOID AND CSF MIXTURE. 7. DIAGNOSTIC MYELOGRAPHY WITH RADIOLOGIC SUPERVISION AND INTERPRETATION THROUGH ACCESS PORT CONFIRMING FUNCTIONALITY. 8. CLOSURE OF THREE INCISIONS; PREVIOUS PUMP POUCH, NEW PUMP POUCH, SPINAL CATHETER POUCH WITH VICRYL FOR FASCIA AND GABINO FOR SKIN. DRESSING PLACED. 9. PROGRAMMING OF PUMP BACK TO INITIAL PARAMETERS, HYDROMORPHONE 0.15 MG PER DAY. SURGEON: VICTORINO SEGURA D.O. ANESTHESIA: LOCAL SEDATION. ANESTHESIA PROVIDER: KERRY GOLDEN. INDICATION: This patient presents with a history of chronic post laminectomy pain with a spinal infusion device in place for nine to ten months. Throughout this period of time, she has formed a chronic seroma at the right posterior gluteal margin pump pouch as well as the midline catheter pouch. Multiple conservative attempts at controlling the seroma formation were unsuccessful. The seroma required aspirating monthly. This seromatous formation became painful , restricting with respect to clothing, and comfort levels when sitting. It was felt that either we had a catheter leak or it was a chronic seroma. She is here for revision, relocation, and evaluation of the catheter and pump. SURGERY: Intravenous line, vital sign monitoring, IV sedation, prepped and draped sterile technique, patient positioned prone. Sterile prep and sterile technique. The midline spinal catheter incision approximating L3-4 infiltrated. The right posterior margin pump pouch incision was infiltrated, an incision made. Upon incision, copious seromatous fluid was aspirated. The midline spinal catheter incision was widened, the catheter identified. At the right posterior gluteal margin pump pouch, after the incision was made, the pump was exteriorized. The catheter was visually inspected. Nothing obvious was noted. The pump was then removed from the pouch and the catheter at the connector interfacing the spinal component of the pump, the component was cut. The spinal component was clamped to stop CSF leak. The pump catheter component was clamped. A 3 mL syringe with a #24 gauge Caputo needle inserted into the access port was then used to force fluid through the access port into the pump catheter segment under pressure. No leaks identified confirming that component of the catheter was intact. A #25 gauge needle was then inserted into the spinal catheter component and 1 mL of catheter contents was aspirated ensuring the catheter was cleared of opioid along with CSF. Under diagnostic imaging, contrast was injected under pressure. Myelogram characteristics spinal space flow of contrast flow noted. There were no leaks from the spinal component or the catheter. The catheter was clamped. The interfacing connector component was then inspected and fluid was injected. No leaks, confirming no leaks, tears, or rents of the catheter at any of the components. A new catheter segment was then placed onto the field and interfaced by way of a connector with the spinal component. The revised spinal catheter component was then tunneled into a pouch , which was formed above the previous at the right flank. The incision was made and subcutaneous dissection above the belt line and above the previous pump pouch was then formed of suitable size for the pump, 20 mL programmable. The revised catheter was tunnelled into the flank pouch and then interfaced with the 20 mL programmable pump filled with Hydromorphone. Antibiotic irrigation and Bovie for hemostasis at all three incisions. The pump was then placed into the new pouch at the right flank and secured to the posterior fascia with nonabsorbable suture, three-points pump eyelets. A #24 gauge Caputo needle was then inserted into the access port and contrast was injected into the access port into this catheter. Under imaging, contrast flow noted through the pump, pump/catheter connection, and into the spinal space. There were no leaks, kinks , or bends and appropriate flow characteristics were noted confirming functionality. The three incisions were closed using Vicryl suture for the fascia creating a tight closure of the spaces. [place] were then used for skin. An OPSITE dressing was then used over each. The pump was then programmed to deliver by continuous infusion Hydromorphone at the existing previous rate, 0.15 mg a day. With all the incisions closed, the pump relocated, the catheter revised resected, she was transported to the Recovery Room stable. She will kept overnight for observation and discharged in the morning. There were no pump parameter changes made. DISCHARGE INSTRUCTIONS: 1. The sites are to remain clean and dry. No showering or bathing in any way that would disrupt dressings. If it happens, contact the Clinic. 2. Standard medications resumed, including the antibiotic, Levaquin, 500 mg once a day for 14 days. 3. She will be seen in the office in the next 7 to 10 days. The office will contact her in 24 to 48 hours. All other instructions provided, numbers to contact with problems given. She will be seen in the office in 7 to 10 days. All numbers have been given, should there be any problems. cc: Dr. Schwarz JOB NUMBER: [id number] MTDD
== END 2018-09-23 10:30 | disposition home health service (06) ==
LOC: SUR 09:12 → MEDSURG 14:15 → SUR 09-23 10:30
PROVIDERS: ATTEND Pain Medicine Interventional Pain Medicine
DX: M54.16 Radiculopathy, lumbar region (principal); M54.17 Radiculopathy, lumbosacral region; G62.9 Polyneuropathy, unspecified; L76.34 Postprocedural seroma of skin and subcutaneous tissue following other procedure
CPT/HCPCS: J1170

== ENCOUNTER 2019-05-11 09:50 | Day surgery (SDC) | payer MEDICARE, MEDICAID ==
--- NOTE | 2019-05-11 07:06 | History and Physical - [place] ---
CHIEF COMPLAINT/HISTORY OF CHIEF COMPLAINT: This patient presents with a history of an intractable cervical and lumbar radiculopathy. Separate spinal cord stimulators are in place which are controlling pain to the regions. The patient has had some difficulty with respect to management of the respective pain areas, there have been changes with respect to lumbar pattern of pain extending further up into the low back and lower into the extremities. With respect to the cervical spine stimulator the pain patterns have been extending more distally towards the hand and fingers away from the shoulders. Multiple attempts at reprogramming each of the two systems has failed to appreciably control pain. It was felt that with the new generator which is available from [employer] allowing for more program options and the overlay of different programming's simultaneously that we would get better control of her pain pattern with the new generator. For that reason she is here for exchange of the two generators to the new generation system [employer]. PAST MEDICAL HISTORY: Chronic bladder dysfunction, degenerative arthritis, post lumbar laminectomy syndrome, and post polio syndrome. PAST SURGICAL HISTORY: Lumbar spinal surgery, spinal cord stimulator implant cervical and lumbar, and spinal infusion system device. MEDICATIONS ON ADMISSION: List to be provided. ALLERGIES: ASPIRIN. FAMILY/PSYCHOSOCIAL HISTORY: Social history - Caffeine. Family history - Noncontributory. SYSTEMS REVIEW: The patient seems appropriate in no acute distress. PHYSICAL EXAMINATION: Height and weight are not known. No vital signs. HEENT: Within normal limits. LUNGS: Clear. HEART: Rapid and regular. ABDOMEN: Nontender. MUSCULOSKELETAL: Examination of the musculoskeletal system shows diffuse tenderness throughout the cervical and lumbar spine. There is bilateral upper extremity components extending all the way into the hands and fingers. Low back pain extending all the way into the feet. The incisional sites for the generators are at the right posterior gluteal margin and left flank. The incisions are intact. NEUROLOGIC: Cranial nerves are intact. IMPRESSION: 1. POST LUMBAR LAMINECTOMY SYNDROME, ICD-10 CODE M54.16 AND M54.17, LUMBAR RADICULOPATHY. 2. CERVICAL RADICULOPATHY, ICD-10 CODE M54.12. 3. CERVICAL LUMBAR SPINAL CORD STIMULATOR INTERNAL GENERATORS NONFUNCTIONAL. PLAN: The patient is here for removal and replacement of the two generators for each of the respective systems. The procedure will be considered outpatient, an overnight stay will not be necessary. JOB NUMBER: [id number] [facility]
[~2019-05-11 09:50] MED LIST changes: -ACETAMINOPHEN 1,000 MG/100 ML BTL IV ONE; +ACETAMINOPHEN 1,000 MG/100 ML BTL IVPB ONE; -HYDROMORPHONE HCL 0.04 GM in 0.9 % SODIUM CHLORIDE 10ML VIA 20 ML IV ONE; -HYDROMORPHONE PF 2MG/ML AMP 0.008 MG in 0.9 % SODIUM CHLORIDE 10ML VIA 0.996 ML IV ONE
[2019-05-11] MEDS ORDERED: 0.9 % SODIUM CHLORIDE 10 ML VIAL IVP ONE (09:51)
[2019-05-11] MEDS ORDERED: MIDAZOLAM HCL 2MG/2ML VIAL IV ONE (09:51)
[2019-05-11] MEDS ORDERED: *PACU ONLY* KETAMINE HCL 10 MG/ML (20ML) VIAL IV ONE (09:51)
[2019-05-11] MEDS ORDERED: LIDOCAINE 2% MDV (20MG/ML) 20ML VIAL IV ONE (09:51)
[2019-05-11] MEDS ORDERED: CEFAZOLIN 1G VIAL IVP ONE (09:51)
[2019-05-11] MEDS ORDERED: FENTANYL PF 100MCG/2ML VIAL IV ONE (09:51)
[2019-05-11] MEDS ORDERED: PROPOFOL 10 MG/ML VIAL IV ONE (09:51)
[2019-05-11] MEDS ORDERED: RINGERS SOLUTION,LACTATED 1,000 ML IV ONE (10:43)
--- NOTE | 2019-05-12 08:20 | Operative Note ---
DATE OF SURGERY: 05/11/2019 PREOPERATIVE DIAGNOSES: 1. Post lumbar laminectomy syndrome with intractable lumbar radiculopathy, ICD10 code M96.1 and M54.16 and M54.17. 2. Intractable cervical radiculopathy, ICD10 code M54.12. 3. Cervical 2-lead spinal cord stimulator with internal generator nonfunctional. 4. Lumbar spinal cord stimulator 2 leads internal generator nonfunctional. OPERATION: 1. Fluoroscopic-guided incision, subcutaneous dissection, and removal and replacement of cervical internal pulse generator left flank. 2. Incision, subcutaneous dissection, and removal and replacement of internal pulse generator right posterior gluteal margin for lumbar system. SURGEON: Christian Corrales, ANESTHESIA: Local with sedation. ANESTHESIA PROVIDER: Sunita Caban INDICATION: This patient with a history of both intractable cervical and lumbar radiculopathy has 2 separate spinal cord stimulators and internal generators. One 2-lead system for cervical and the other 2-lead system for lumbar. Because of the patient's inability to recharge the system adequately, each of the 2 generators has depleted and become nonfunctional. After multiple attempts at reprogramming and reeducation with the patient in terms of recharging the generators, she has been unable to complete the process, master the procedure, and result has been 2 nonfunctional generators. She is here for replacement of generators with non-rechargeable internal pulse generators, one for the cervical and one for the lumbar. PROCEDURE: Intravenous line, vital sign monitoring, IV sedation. Prepped and draped sterile technique. Patient positioned prone. Sterile prep, sterile technique. The cervical generator at the left flank and the lumbar generator at the right posterior gluteal margin sites were both prepped. At the left flank, skin infiltrated, incision made, and subcutaneous dissection was conducted to the generator pouch. The generator was then exteriorized and from the indwelling leads. A non-rechargeable battery was placed onto the field. The leads were removed and reinserted into the non-rechargeable generator. Antibiotic irrigation and Bovie for hemostasis. The generator was placed into the pouch. The pouch needed to be revised and enlarged to accommodate the increased size of the non-rechargeable. With the generator in the pouch, the incision was closed using Stratafix suture, 2-0 fascia, 3-0 skin, Dermabond closure. At the right posterior gluteal margin, generator for the lumbar system, skin infiltrated, incision made, and subcutaneous dissection was conducted to the generator pouch. The generator pouch was opened, generator exteriorized and from the leads. A non-rechargeable generator placed onto the field. Both were [employer] programmable non-rechargeable. The indwelling leads were interfaced after being from the indwelling generator with the new non-rechargeable generator. Antibiotic irrigation, Bovie for hemostasis. The generator was placed into the pouch and the incision was closed using Stratafix suture 2-0 fascia, 3-0 skin, Dermabond closure. She was transported to the recovery room stable. No side effects from the procedure or sedation. In the recovery room, complex programming of the 2 generators, first cervical and then lumbar, was performed with the patient awake. She tolerated the procedure without difficulty. DISCHARGE INSTRUCTIONS: 1. The sites will remain clean and dry although the Dermabond will allow showering. 2. Standard medication resumed including the antibiotic Levaquin 500 mg a day for 14 days. 3. Office to contact the patient in the next 12-24 hours to set up a time in the next 7-10 days for us to evaluate the sites. Until then, she is to keep her activities low. All other instructions provided, numbers to contact if problems given. She was then discharged. TING
== END 2019-05-11 14:46 | disposition home or self-care (01) ==
LOC: SUR 09:50
PROVIDERS: ATTEND Pain Medicine Interventional Pain Medicine
DX: M96.1 Postlaminectomy syndrome, not elsewhere classified (principal); M54.16 Radiculopathy, lumbar region; M54.17 Radiculopathy, lumbosacral region; M54.12 Radiculopathy, cervical region; G62.9 Polyneuropathy, unspecified; G43.909 Migraine, unspecified, not intractable, without status migrainosus
CPT/HCPCS: 95972; J0690; J7120